=== PATIENT | male | born 1950 | race African-American/Black ===

== ENCOUNTER 2019-02-09 11:27 | Inpatient (IN) ==
--- NOTE | 2019-02-09 12:11 | Diag Imaging Result Doc PS360 ---
CHEST-2 VIEWS - 02/09/2019 INDICATION: weak COMPARISON: 10/21/2018 FINDINGS: The lungs are normally expanded and clear. Heart size and mediastinal contours are normal. No pneumothorax or pleural effusion. Stable calcified granulomas in the left upper lobe. IMPRESSION: Negative exam. Electronically signed by Flaco Chahal 02/09/2019 12:09 PM
[2019-02-09] MEDS ORDERED: NS 1,000 ML IV ONE (14:59)
[2019-02-09 15:59] LABS: BASO# 0.03 X1000 (0.0-0.2); BASO% 0.5 % (0.0-0.8); EOS# 0.03 X1000 (0.0-0.7); EOS% 0.5 % (0.0-10.0); HEMATOCRIT 40.8 % (42.0-52.0); HEMOGLOBIN 13.7 g/dL (14.0-18.0); IMM GRAN# 0.02 X1000 (0.0-0.04); IMM GRAN% 0.3 % (0.0-0.5); LYMPH# 1.36 X1000 (1.2-3.4); LYMPH% 21.2 % (20.5-51.1); MCH 31.2 PG (27-31); MCHC 33.6 g/dL (33-37); MCV 92.9 FL (81-99); MONO# 0.77 X1000 (0.11-0.59); MPV 10.1 FL (7.4-10.4); NEUT% 65.5 % (42.2-75.2); PLT 403 X1000 (130-400); RBC 4.39 XMIL (4.7-6.1); RDW 13.3 % (11.5-14.5); WBC 6.41 X1000 (4.8-10.8)
[2019-02-09 16:13] LABS: INR 1.55; PROTIME 19.8 Seconds (11.0-16.0)
[2019-02-09 16:31] LABS: AGAP 13; ALB/GLOB RATIO 1.8; ALBUMIN 4.3 g/dL (3.5-5.0); ALKALINE PHOSPHATASE 110 U/L (32-122); BUN 17 mg/dL (8-22); CALCIUM 9.4 mg/dL (8.8-10.2); CHLORIDE 102 mmol/L (98-107); CK PROFILE 125 U/L (24-204); COSMO 286; CREATININE 0.9 mg/dL (0.7-1.2); ESTIMATED GFR > 60; GLUCOSE 83 mg/dL (70-104); GOT 80 U/L (10-34); GPT 37 U/L (10-44); POTASSIUM 4.8 mmol/L (3.5-5.1); SODIUM 143 mmol/L (136-145); TCO2 28 mmol/L (25-35); TOTAL BILIRUBIN 0.93 mg/dL (0.20-1.00); TOTAL PROTEIN 6.7 g/dL (6.3-8.3)
--- NOTE | 2019-02-09 16:33 | Diag Imaging Result Doc PS360 ---
CT HEAD W/O CONTRAST - 02/09/2019 INDICATION: syncope COMPARISON: 07/24/2018 FINDINGS: There is stable advanced, diffuse cerebral atrophy. No intracranial mass or hemorrhage. The skull is intact. The sinuses, mastoids, and middle ears are clear. IMPRESSION: No acute process. This exam was performed using automated exposure control, adjustment of mA or kV according to patient size, and/or use of iterative reconstruction technique Electronically signed by Flaco Chahal 02/09/2019 4:31 PM
[2019-02-09] MEDS ORDERED: LOPRESSOR IV ONE (17:19)
[2019-02-09] MEDS ORDERED: LASIX PO ONE (19:47)
[2019-02-09] MEDS ORDERED: MORPHINE IV ONE (19:47)
[2019-02-09] MEDS ORDERED: ASPIRIN PO ONE (19:47)
--- NOTE | 2019-02-09 20:22 | PROVIDER DOCUMENTATION ---
This chart was entered by Florence Santiago Scribe, acting as scribe for Jane Walker MD. HPI-Chest Pain - General Chief Complaint: General Adult Stated Complaint: PASSED OUT SUNDAY@[employer] Time Seen by Provider: 02/09/19 14:52 Source: patient Allergies/Adverse Reactions: Patient Allergies Allergy/AdvReac Type Severity Reaction Status Date / Time No Known Allergies Allergy Verified 10/21/18 15:27 Home Medications: Home Medication List Medication Instructions Recorded Confirmed Last Taken Type Albuterol Sulfate [Albuterol 8.5 gm IH Q6H PRN PRN #1 hfa.aer.ad 04/21/18 07/24/18 Unknown Rx Sulfate Hfa] Aspirin 81 mg PO DAILY #30 chewtab 04/21/18 07/24/18 06/10/18 16:30 Rx Digoxin [Lanoxin] 125 microgm PO DAILY #30 tab 04/21/18 07/24/18 06/10/18 16:30 Rx Metoprolol Succinate E.r. [Toprol 25 mg PO DAILY #30 tab 04/21/18 07/24/1805/13 Rx Xl] Spironolactone [Aldactone] 25 mg PO DAILY #30 tab 04/21/18 07/24/18 05/21/18 Rx ATORVAstatin [Lipitor] 40 mg PO QHS tablet 05/27/18 07/24/18 06/10/18 16:30 Rx Tamsulosin [Flomax] 0.4 mg PO DAILY capsule 05/27/18 07/24/18 06/10/18 16:30 Rx Furosemide 2 tab PO BID #120 tab 06/15/18 07/24/18 Unknown Rx Sacubitril/Valsartan [Entresto 24 1 tab PO BID #60 tab 06/15/18 07/24/18 Unknown Rx mg-26 mg Tablet] Amiodarone [Cordarone] 400 mg PO BID #60 tab 07/25/18 Unknown Rx Rivaroxaban [Xarelto] 20 mg PO WSUPPER #60 tab 07/25/18 Unknown Rx - History of Present Illness-CP Nature of Presenting Problem: 68 y/o male presents to ED with worsening L sided chest pain onset 2 days ago. Pt reports he had an episode of syncope 2 days ago while at the bank, but refused medical attention. Pt is alert and oriented. Location: reports: other (L sided) Chest Pain Radiation: reports: no radiation Quality of Pain: reports: sharp Severity in ED: moderate Onset/Duration: 2 days ago Timing: still present, getting worse Context/Activities at Onset: reports: none Modifying Factors: improves with: nothing Associated Symptoms: reports: syncope Nitro Today/Relief: no nitro taken today Aspirin Treatment Today: no aspirin today Prior Chest Pain/Cardiac Workup: reports: no prior cardiac workup, other (hx CHF/HTN) Similar Symptoms Previously?: No Recently Seen Here or By Another Healthcare Provider: No Review of Systems - Adult - REVIEW OF SYSTEMS - ADULT Constitutional: denies: chills, fever Eyes: reports: no symptoms reported Ears, Nose, Mouth & Throat: reports: no symptoms reported Cardiovascular: reports: chest pain. denies: palpitations Respiratory: denies: cough, shortness of breath Gastrointestinal: denies: abdominal pain, diarrhea, nausea, vomiting Genitourinary: reports: no symptoms reported Musculoskeletal: denies: back pain, joint pain Integumentary: reports: no symptoms reported Neurological: reports: syncope. denies: dizziness/vertigo, seizure Psychiatric: reports: no symptoms reported Endocrine: reports: no symptoms reported Hematologic/Lymphatic: reports: no symptoms reported Allergic/Immunologic: reports: no symptoms reported All Other Systems: Reviewed and Negative Past History - Adult - PAST MEDICAL HISTORY-ADULT Review of Records: reports: Old Records Reviewed, Nursing Assessment Review, Medications Reviewed Major Childhood Illnesses: reports: denies history Cardiovascular: reports: CHF, HTN Respiratory: reports: pneumonia, other (sob) Gastrointestinal: reports: denies history Genitourinary: reports: other (BPH) Musculoskeletal: reports: arthritis Neurological: reports: denies history Psychiatric: reports: denies history Endocrine/Immune: reports: denies history - PRIOR SURGERIES/PROCEDURES Surgical/Procedure History: reports: orthopedic (extremity) (L ankle) - IMMUNIZATION STATUS Childhood Immunizations: See Nurse Assessment Flu Vaccine: See Nurse Assessment - FAMILY HISTORY Family History: reviewed, not pertinent - SOCIAL HISTORY Smoking: less than 1 pack/day Provider spent 3-5 mins advising pt. on dangers of tobacco.: Discussed manners to quit use, and f/u contacts for add'l counseling. Substance Use: none/never Alcohol Use Frequency: occasionally Living Situation: family Physical Exam-General - PHYSICAL EXAM-ADULT Initial Vital Signs Reviewed: Yes - CONSTITUTIONAL General Appearance: appears well, alert, no apparent distress - EYES Eyes: PERRL/EOMI, pink conjunctivae - HEAD, EARS, NOSE, MOUTH & THROAT HENMT: normocephalic/atraumatic, moist mucous membranes, normal ENT inspection - NECK Neck: non-tender, full range of motion - RESPIRATORY Respiratory: chest non-tender, lungs clear, normal breath sounds - CARDIOVASCULAR Cardiovascular: normal peripheral pulses, regular rate, rhythm - GASTROINTESTINAL (ABDOMEN) Abdominal Exam: normal bowel sounds, non tender, soft, distended - MUSCULOSKELETAL Back Exam: normal inspection, no CVA tenderness, no vertebral tenderness Extremity: normal range of motion, non-tender, normal gait - SKIN Integumentary: normal color, warm/dry - NEUROLOGIC Neurologic: grossly normal - PSYCHIATRIC Psych/Mental Status: normal mood/affect, normal thought content, normal thought process, oriented x 3 - HEART Score HEART Score: History: Moderately Suspicious HEART Score: ECG: Normal HEART Score: Age: > or = 65 Years HEART Score: Risk Factors for Atherosclerotic Disease: > or = 3 Risk Factors or History of Atherosclerotic Disease HEART Score: Troponin: < or = Normal Limit Total HEART Score:: 5 Progress - PLAN OF CARE/RESULTS Progress/Plan/Lab Results: Vital Signs - 8 hr 02/09/19 15:24 02/09/19 15:25 02/09/19 15:30 Temperature Pulse Rate 127 H 111 H 126 H Respiratory Rate 6 L 12 22 Blood Pressure 159/106 O2 Sat by Pulse Oximetry 99 100 02/09/19 15:39 02/09/19 15:40 02/09/19 15:50 Temperature Pulse Rate 108 H 116 H 107 H Respiratory Rate 15 26 H 15 Blood Pressure 142/91 O2 Sat by Pulse Oximetry 100 100 100 02/09/19 16:09 02/09/19 16:10 02/09/19 16:20 Temperature Pulse Rate 140 H 102 H Respiratory Rate 21 18 Blood Pressure O2 Sat by Pulse Oximetry 100 99 99 02/09/19 16:30 02/09/19 16:33 02/09/19 16:40 Temperature Pulse Rate 107 H 104 H 106 H Respiratory Rate 9 L 14 13 Blood Pressure 136/89 O2 Sat by Pulse Oximetry 99 98 99 02/09/19 16:50 02/09/19 17:00 02/09/19 17:03 Temperature Pulse Rate 104 H 105 H 104 H Respiratory Rate 10 L 22 19 Blood Pressure 146/98 O2 Sat by Pulse Oximetry 99 99 99 02/09/19 17:10 02/09/19 17:20 02/09/19 17:30 Temperature Pulse Rate 102 H 97 H 102 H Respiratory Rate 18 16 15 Blood Pressure O2 Sat by Pulse Oximetry 99 99 99 02/09/19 20:04 Temperature 98 F Pulse Rate 105 H Respiratory Rate 18 Blood Pressure 150/100 O2 Sat by Pulse Oximetry 98 Laboratory Results - last 24 hr 02/09/19 02/09/19 02/09/19 15:35 15:35 15:35 WBC 6.41 RBC 4.39 L Hgb 13.7 L Hct 40.8 L MCV 92.9 MCH 31.2 H MCHC 33.6 RDW Std Deviation 13.3 Plt Count 403 H MPV 10.1 Immature Gran % (Auto) 0.3 Neut % (Auto) 65.5 Lymph % (Auto) 21.2 Hartley % (Auto) 12.0 H Eos % (Auto) 0.5 Baso % (Auto) 0.5 Immature Gran # (Auto) 0.02 Neut # (Auto) 4.20 Lymph # (Auto) 1.36 Hartley # (Auto) 0.77 H Eos # (Auto) 0.03 Baso # (Auto) 0.03 PT 19.8 H INR 1.55 PTT (Actin FS) 34.0 Sodium 143 Potassium 4.8 Chloride 102 Carbon Dioxide 28 Anion Gap 13 BUN 17 Creatinine 0.9 Estimated GFR/1.73 m2 > 60 BUN/Creatinine Ratio 19 Glucose 83 POC Glucose Calculated Osmolality 286 Calcium 9.4 Total Bilirubin 0.93 AST 80 H ALT 37 Alkaline Phosphatase 110 Creatine Kinase 125 Troponin T Pnf-[id number]-Coqlzlpyxkt Pept Total Protein 6.7 Albumin 4.3 Globulin 2.4 Albumin/Globulin Ratio 1.8 Plasma Lactate 02/09/19 02/09/19 02/09/19 15:35 16:36 17:31 WBC RBC Hgb Hct MCV MCH MCHC RDW Std Deviation Plt Count MPV Immature Gran % (Auto) Neut % (Auto) Lymph % (Auto) [place] % (Auto) Eos % (Auto) Baso % (Auto) Immature Gran # (Auto) Neut # (Auto) Lymph # (Auto) Hartley # (Auto) Eos # (Auto) Baso # (Auto) PT INR PTT (Actin FS) Sodium Potassium Chloride Carbon Dioxide Anion Gap BUN Creatinine Estimated GFR/1.73 m2 BUN/Creatinine Ratio Glucose POC Glucose 81 Calculated Osmolality Calcium Total Bilirubin AST ALT Alkaline Phosphatase Creatine Kinase Troponin T < 0.010 Pvv-R-Faozsmglear Pept Total Protein Albumin Globulin Albumin/Globulin Ratio Plasma Lactate 1.4 02/09/19 02/09/19 02/09/19 17:45 17:45 17:45 WBC RBC Hgb Hct MCV MCH MCHC RDW Std Deviation Plt Count MPV Immature Gran % (Auto) Neut % (Auto) Lymph % (Auto) Hartley % (Auto) Eos % (Auto) Baso % (Auto) Immature Gran # (Auto) Neut # (Auto) Lymph # (Auto) Hartley # (Auto) Eos # (Auto) Baso # (Auto) PT INR PTT (Actin FS) Sodium Potassium Chloride Carbon Dioxide Anion Gap BUN Creatinine Estimated GFR/1.73 m2 BUN/Creatinine Ratio Glucose POC Glucose Calculated Osmolality Calcium Total Bilirubin AST ALT Alkaline Phosphatase Creatine Kinase 100 Troponin T < 0.010 Iso-T-Rmgcrfcyemv Pept 114 Total Protein Albumin Globulin Albumin/Globulin Ratio Plasma Lactate Orders Category Date Time Status Cardiac Monitoring DIRECTED Care 02/09/19 14:57 Active Finger Stick Blood Sugar (ED) DIRECTED Care 02/09/19 14:57 Active Nursing- Obtain EKG ONCE Care 02/09/19 11:48 Active Oxygen Therapy- ED Nursing DIRECTED Care 02/09/19 14:57 Active Saline Loc NOW Care 02/09/19 14:57 Active Vital Signs Order ORDERED Care 02/09/19 16:24 Active CHEST-2 VIEWS [RAD] Stat Exams 02/09/19 11:[address] HEAD W/O CONTRAST [CT] Stat Exams 02/09/19 14:58 Completed BNP [PRO B-NATRIURETIC PEPTIDE] Stat Lab 02/09/19 17:45 Completed CBC WITH ELECTRONIC DIFF [HEME] Stat Lab 02/09/19 15:35 Completed CK PROFILE [SP CHEM] Stat Lab 02/09/19 15:35 Completed CK PROFILE [SP CHEM] Stat Lab 02/09/19 17:45 Completed COMPREHENSIVE METABOLIC PANEL [CHEM] Stat Lab 02/09/19 15:35 Completed DIGOXIN [TDM] Stat Lab 02/09/19 19:54 Ordered LACTATE, PLASMA [CHEM] Stat Lab 02/09/19 17:31 Completed PROTIME WITH INR [COAG] Stat Lab 02/09/19 15:35 Completed PTT [COAG] Stat Lab 02/09/19 15:35 Completed TROPONIN T Stat Lab 02/09/19 15:35 Completed TROPONIN T Stat Lab 02/09/19 17:45 Completed 0.9% Sodium Chloride Inj [Ns] 1,000 ml Med 02/09/19 14:59 Discontinued IV 999 mls/hr Aspirin Med 02/09/19 19:47 Discontinued 325 mg PO NOW ONE Furosemide [Lasix] Med 02/09/19 19:47 Discontinued 40 mg PO NOW ONE Metoprolol [Lopressor] Med 02/09/19 17:19 Discontinued 2.5 mg IV NOW ONE Morphine Med 02/09/19 19:47 Discontinued 2 mg IV NOW ONE Altered Mental Status Stat Oth 02/09/19 14:56 Ordered EKG [EKG] Stat Ther 02/09/19 11:48 Ordered EKG [EKG] Stat Ther 02/09/19 17:33 Ordered Transfer/Admit Order [TRANSFER] Routine Transfer 02/09/19 19:41 Ordered Result Diagrams: 02/09/19 15:35 02/09/19 15:35 - EKG 1 Time of EKG reading by physician:: 11:50 EKG Read and Signed by:: Dexter Iverson EKG Interpretation (*Must complete 3 of following elements*): Abnormal Rate: 112 Rhythm: Sinus tach [place]: left QRS: other (low voltage QRS; inferior infarct; cannot rule out anterior infarct) NE Interval: prolonged ST Wave: normal - XRAY 1 XRAY Study: Chest Impression: See EMR Report ([facility] [address], [address], [place] [address] Department of Imaging Patient: SILVIANO MAKI EADM Date: 02/09/19MR#: [id number] : 1950DM Status: PRE ERAcct#: [id number] Age/Sex: 68/MRoom/Bed: Loc: ED Ordering Physician: Dexter Iverson DO Family Physician: Sg Robbins MD Reason for Procedure: weak Signed CHEST-2 VIEWS - 02/09/2019 INDICATION: weak COMPARISON: 10/21/2018 FINDINGS: The lungs are normally expanded and clear. Heart size and mediastinal contours are normal. No pneumothorax or pleural effusion. Stable calcified granulomas in the left upper lobe. IMPRESSION: Negative exam. Electronically signed by Flaco Chahal 02/09/2019 12:09 PM 02/09/19 1209 Interpreting Physician: Flaco Chahal MD Dictated Date/Time: 02/09/19 1206 cc: Dexter Iverson DO; Sg Robbins MD) - CT/MRI 1 CT Study: Head Impression: See EMR Report ([facility] [address] [place] [address], [address], [place] [address] Department of Imaging Patient: SILVIANO MAKI EADM Date: 02/09/19#: [id number] : 1950DM Status: [facility] ERAcct#: [id number] Age/Sex: 68/MRoom/Bed: Loc: ED Ordering Physician: Jane Walker MD Family Physician: Sg Robbins MD Reason for Procedure: syncope Signed CT HEAD W/O CONTRAST - 02/09/2019 INDICATION: syncope COMPARISON: 07/24/2018 FINDINGS: There is stable advanced, diffuse cerebral atrophy. No intracranial mass or hemorrhage. The skull is intact. The sinuses, mastoids, and middle ears are clear. IMPRESSION: No acute process. This exam was performed using automated exposure control, adjustment of mA or kV according to patient size, and/or use of iterative reconstruction technique Electronically signed by Flaco Chahal 02/09/2019 4:31 PM 02/09/19 1631 Interpreting Physician: Flaco Chahal MD Dictated Date/Time: 02/09/19 1629 cc: Jane Walker MD; Sg Robbins MD) - CONSULTS/PCP/HOSPITALIST Notification #1 *Consult/PCP/Hospitalist*: Dr. Cook Time Discussed: 18:48 Consult Disposition: Admit (for syncopal episode and will consulted) #2 Consult: Dr. pisano Time Discussed: 18:53 (will transfer to night team) #3 Consult: Dr. Leiva Time Discussed: 20:21 Consult Disposition: Admit (acs, syncopal episode) Departure - Departure Date of Disposition Decision: 02/09/19 Time of Disposition Decision: 18:47 DIAGNOSIS: ACS (acute coronary syndrome), Syncopal episodes Disposition: ADMITTED INPATIENT 09 Certified Medical Emergency: Emergent Condition: Stable - Critical Care Note This patient required my direct & personal management of CC.: No Attestation - Physician/ JAZZY Attestation Patient care was provided by Advanced Practice Provider:: No The physician spent face to face time with patient:: Yes Advanced Practice Provider documentation review:: Supervising physician onsite and consulted in the evaluation and care of this patient. The physician did have a face to face encounter with the patient. This chart was documented by the indicated scribe, (Florence Santiago Scribe) and accurately reflects the services I performed and decisions made by me, Jane Walker MD, as attested by the provider's signature.
--- NOTE | 2019-02-09 21:05 | HISTORY AND PHYSICAL ---
PRIMARY CARE PHYSICIAN: Dr. Sg Robbins. VASCULAR: Dr. Ghanshyam Cortez. REASON FOR ADMISSION: Today history of chest pain and syncope. HISTORY OF PRESENT ILLNESS: Mr. Royce Jessica is a 68-year-old man with past medical history of coronary artery disease, nonischemic cardiomyopathy, chronic systolic heart failure with EF of 25%, hypertension, hyperlipidemia who was last admitted here in July 2018 for syncope and atrial flutter. Comes in today complaining of a two day history of constant chest pain which is throbbing in nature. He said the pain occurred several hours after he had a syncopal spell while at the bank on Sunday two days ago. He says he was standing and was going to insert his card into one of the bank machines and the next thing he knew he broke out in a sweat. When he came to he saw people surrounding him and he managed to get up. He denies any fecal or urinary incontinence, tongue bite. He denies any antecedent or subsequent palpitations, shortness of breath, fever or chills. He said several hours later he developed chest pain confined to this precordium. He said the pain is not nonradiating with no specific aggravating or relieving factors. The patient came to the ER today because he has also had a two day history of worsening expectorant cough which is consistent of whitish sputum. He said in his mind he felt that he may have had pneumonia when he put the chest pain and the cough together. He had no fever or chills, however. No antecedent PND, orthopnea, leg swelling. He also denies any change in his medication recently, but oddly enough he admits to a 50 pounds weight loss which he states occurred with simultaneous decreased appetite. No altered bowel habits. No other additional GI or complaints. REVIEW OF SYSTEMS: Also notable for only cramping in his feet. He denies any bleeding from any orifice. No vomiting or diarrhea. Otherwise, 12 system review was done. Positive findings per HPI. ALLERGIES: None. MEDICATIONS: Have not been reconciled. His old list has him on Aldactone, atorvastatin albuterol, aspirin, amiodarone, Entresto, Flomax, furosemide, digoxin, metoprolol and Xarelto. FAMILY HISTORY: Notable for heart disease, breast cancer, but no diabetes in first-degree relatives. SURGICAL HISTORY: Has had left ORIF. SOCIAL HISTORY: Lives alone. Does not smoke, drink or use illicit drugs. LABORATORY WORK: EKG showed low voltage sinus wave, sinus rhythm with a rate of about 104. He has incomplete right bundle, left axis deviation, Q-waves in the inferior leads. Also, QT prolongation. White count 6000, hemoglobin and hematocrit 13 and 40, platelets 403,000, with normal differential. Chemistry is entirely normal. BUN 17, creatinine 0.9, AST 80, ALT 37. Troponin is undetected. Lactate 1.4. Coags. PT 19, INR 1.5, PTT 34. Chest film clear. CT scan shows no acute intracranial process. PHYSICAL EXAMINATION: VITAL SIGNS: Pressure 146/98, respirations 15, temperature is 98.5, pulse is 102. GENERAL: A middle-aged male, not in acute distress. AAO x 3. Normal mood and affect. HEENT: Head is normocephalic, atraumatic. EOMI intact, not pale. ENT on exam is grossly normal without any exudates or erythema. No cyanosis. NECK: Supple. No JVD or carotid bruit. No hepatojugular reflux. No bruit, no thyromegaly. CHEST: Clear when auscultated with good air entry both lung pastrana. CARDIOVASCULAR: First and second heart sounds heard. No gallops, murmurs, rubs. Regular rhythm and slight tachycardia. ABDOMEN: Full, soft, nontender. No megaly. Bowel sounds are normal. RECTAL: Rectal exam deferred at this time. EXTREMITIES: Patient has diminished distal pulse volumes in all extremities. Rhythm is regular, symmetrical. No edema, clubbing or peripheral cyanosis. Feet particularly are cool to touch. NEUROLOGIC: No gross focal deficits. SKIN: Intact. No breakdown of skin. MUSCULAR: Grossly normal. ASSESSMENT: 1. Syncopal episode, could be due to dysrhythmia. 2. Chest pain, somewhat atypical. 3. History of atrial fibrillation flutter. 4. Chronic heart failure with reduced EF of 25%. 5. Hypertensive heart disease. 6. Hyperlipidemia. 7. Nonischemic cardiomyopathy. PLAN: ER physician contacted Dr. Cook who said in light of the patient's extensive cardiac history, it will be prudent to keep him for a day or two to elucidate the etiology of syncope. My guess is probably this is probably related to more likely an electrical versus a mechanical etiology. However, vasovagal syncope cannot be discounted. Patient was on his feet, broke out in a sweat before passing out. He has had an extensive catheterization which was unimpressive in May 2018. Is highly unlikely that this is an ischemic etiology. The patient will be monitored and if no dysrhythmias revealed, he can probably be sent home with a 30 day event monitor. I have ordered a digoxin level, magnesium level are in light of the patient's QT prolongation to see if these may be playing a role. Also, to rule out a possibility of torsade which is somewhat unlikely in this patient. We will reconcile patient's home medications on arrival. Will reconcile patient's home medications once they are made available. We will recommend doing orthostatic vital signs which I feel have not been done and if the etiology of this can be remedied by my adjusting his medications. cc: MD Sg Cuello MD Khurram Bashir
[2019-02-09] MEDS ORDERED: NS 1,000 ML ONE (21:25)
[2019-02-09] MEDS ORDERED: VERSED ONE (21:26)
[2019-02-09] MEDS ORDERED: ZOFRAN IV PRN (22:18)
[2019-02-09] MEDS ORDERED: MORPHINE IV PRN (22:18)
[2019-02-09] MEDS ORDERED: TYLENOL PO PRN (22:18)
[2019-02-10 06:08] LABS: AGAP 8; BUN 15 mg/dL (8-22); CALCIUM 8.3 mg/dL (8.8-10.2); CHLORIDE 104 mmol/L (98-107); COSMO 280; ESTIMATED GFR > 60; GLUCOSE 96 mg/dL (70-104); POTASSIUM 3.9 mmol/L (3.5-5.1); SODIUM 140 mmol/L (136-145); TCO2 28 mmol/L (25-35)
--- NOTE | 2019-02-10 08:02 | EKG Report ---
Test Performed on : 02/09/2019 11:50:31 AM Test Reason : weak Blood Pressure : / mmHG Vent. Rate : 112 BPM Atrial Rate : 112 BPM P-R Int : 112 ms QRS Dur : 086 ms QT Int : 448 ms P-R-T Axes : 000 -35 056 degrees QTc Int : 611 ms Sinus tachycardia. Left axis deviation Low voltage QRS Inferior infarct (cited on or before 16-NOV-2017) Cannot rule out Anterior infarct , age undetermined Prolonged QT Abnormal ECG When compared with ECG of 21-OCT-2018 15:25, Minimal criteria for Anterior infarct are now present T wave inversion no longer evident in Lateral leads Unconfirmed Result
--- NOTE | 2019-02-10 08:03 | EKG Report ---
Test Performed on : 02/09/2019 6:00:36 PM Test Reason : cp Blood Pressure : / mmHG Vent. Rate : 082 BPM Atrial Rate : 082 BPM P-R Int : 186 ms QRS Dur : 074 ms QT Int : 364 ms P-R-T Axes : -10 -56 050 degrees QTc Int : 425 ms Normal sinus rhythm. Left axis deviation Low voltage QRS Inferior infarct (cited on or before 16-NOV-2017) Possible Anterolateral infarct (cited on or before 16-NOV-2017) Abnormal ECG When compared with ECG of 09-FEB-2019 11:50, (Unconfirmed) T wave inversion more evident in Anterior leads Nonspecific T wave abnormality no longer evident in Lateral leads Unconfirmed Result
--- NOTE | 2019-02-10 09:53 | EKG Report ---
Test Performed on : 02/10/2019 09:38:39 AM Test Reason : chest pain Blood Pressure : / mmHG Vent. Rate : 076 BPM Atrial Rate : 076 BPM P-R Int : 202 ms QRS Dur : 078 ms QT Int : 394 ms P-R-T Axes : 016 -34 046 degrees QTc Int : 443 ms Normal sinus rhythm. Left axis deviation Low voltage QRS Inferior infarct (cited on or before 16-NOV-2017) Cannot rule out Anteroseptal infarct (cited on or before 16-NOV-2017) Abnormal ECG When compared with ECG of 09-FEB-2019 18:00, (Unconfirmed) Questionable change in initial forces of Septal leads Questionable change in initial forces of Lateral leads Confirmed by Ruben CHAPMAN, Ozzy ([id number]) on 02/10/2019 8:49:29 PM
[2019-02-10] MEDS: CORDARONE PO SCH (10:53)
[2019-02-10] MEDS: LOPRESSOR PO SCH (10:53)
[2019-02-10] MEDS: LASIX PO SCH (10:54)
[2019-02-10] MEDS: ALDACTONE PO SCH (10:54)
[2019-02-10] MEDS: ENTRESTO 24 MG-26 MG TABLET PO SCH ×2 (11:03→20:52)
--- NOTE | 2019-02-10 14:48 | ECHO REPORT ---
ORDER DATE: 02/09/2019 INDICATIONS: Syncope, CHF. FINDINGS: 1. The right atrium appears normal in size. 2. Trace tricuspid regurgitation. RV systolic pressure unable to be estimated due to poor Doppler jet. 3. The right ventricle appears to be somewhat enlarged but it is difficult to visualize. Probable normal RV systolic function. 4. No significant pulmonic insufficiency. 5. Severe left atrial enlargement with a volume index of 46. 6. No mitral valve prolapse. Trace mitral regurgitation. 7. Normal LV size, end-diastolic dimension of 5.1. Normal wall thicknesses with a posterior and interventricular septal wall thickness of 1 cm each. Normal ejection fraction with an estimated EF of 55% to 60% with normal wall motion. 8. The aortic valve opens well with no evidence of stenosis or insufficiency. 9. The aorta appears somewhat dilated with a dimension of 3.9 cm. 10. No pericardial effusion identified. cc: MD Omkar Khoury MD
--- NOTE | 2019-02-10 14:49 | PROGRESS NOTE ---
DATE: 02/10/2019 INTERVAL HISTORY: He has not had any syncopal episodes since coming. He continues to complain of chest pain in the precordial region since presentation and he thinks that it could be related to gas. He denies any aggravating or relieving factors. Denies any exertional component and it is constant, sharp in the left precordial region. He also admits to drinking alcohol on a daily basis. He currently states that he is feeling tremulous. VITAL SIGNS: Temperature 97.5 degrees, pulse is 59, respiratory rate 18, blood pressure 120/73, saturating 100% on room air. PHYSICAL EXAMINATION: General: Well-built man, not in any acute distress. HEENT: Oral cavity is moist. Lungs: Air entry bilaterally equal. No wheeze, rhonchi, or crackles. Cardiovascular: S1, S2 normal. No murmur, rub, or gallop. Abdomen: Soft, nontender. Chest wall: He does not have any chest wall tenderness. He does not have hepatojugular reflex. Extremities: No lower extremity edema. HEENT: He is alert and oriented x3. Orthostatic Vital Signs: Suggested he did develop tachycardia on standing up with the heart rate jumping more than 20 mmHg on standing up. However, it was a 1 time measurement and I will repeat orthostatic vital signs. LABS: Suggestive of normocytic anemia, normal platelet count, normal electrolytes. MICROBIOLOGY: No data. IMAGING: Head CT on admission was unremarkable. Chest x-ray was also unremarkable without any pneumonia, pneumothorax, or pleural effusion. He does appear to have a degree of hiatal hernia on my review of the chest x-ray. ASSESSMENT AND PLAN: 1. Syncope 3 days prior to presentation. Differential includes vasovagal due to prolonged sun exposure, cardiac arrhythmia, hypoglycemia because of alcohol use and not eating breakfast, and hypotension. I will continue to monitor him in the telemetry unit and I will repeat orthostatic vital signs. I will follow up echocardiogram results. 2. Chest pain localized on the left chest, precordial region, with a hiatal hernia on chest x- ray. He did have coronary imaging in May of 2018 which was largely unremarkable. I will start him on famotidine and will follow further Cardiology recommendations. 3. Paroxysmal atrial fibrillation. Continue him on metoprolol, amiodarone and Xarelto. 4. History of nonischemic alcoholic cardiomyopathy and chronic systolic congestive heart failure with ejection fraction of 25%. Follow up repeat echocardiogram. Continue him on Entresto, Lasix, spironolactone. 5. Alcohol use disorder. Currently appearing tremulous. He is alert and oriented x3 though. I will start him on chlordiazepoxide for mild early withdrawal. 6. Disposition. I will continue to monitor the patient inside the telemetry unit as I await further echocardiogram and Cardiology recommendations. Based on it, he may need ambulatory monitor at the time of discharge. His Lasix dose has been decreased considering possibility of orthostatic hypotension. Plan of care discussed with him. All of his questions have been answered. He was counseled about not using alcohol in the future, he agreed. cc: Keith Flores MD MTDD
[2019-02-10] MEDS: LIBRIUM PO SCH ×2 (15:27→20:47)
[2019-02-10] MEDS: PEPCID PO SCH ×2 (15:28→20:47)
[2019-02-10] MEDS ORDERED: XARELTO PO SCH (17:00)
--- NOTE | 2019-02-10 17:15 | CONSULTATION ---
DATE OF CONSULTATION: 02/10/2019 CARDIOLOGY CONSULTATION: IMPRESSION: 1. Recent syncopal episode occurring 2 days before admission with clinical features to suggest possible orthostatic hypotension, vasovagal episode, or less likely bradycardia episode. Left ventricular systolic function has improved, making ventricular arrhythmia less likely. 2. Atypical chest pain. Continuous in low-grade fashion since patient syncopal episode. I suspect this is more likely musculoskeletal. Previous coronary angiography last year revealed no significant coronary obstructive lesions. 3. Nonischemic cardiomyopathy, probably related to previous heavy alcohol use. Left ventricular systolic function has improved. 4. Previous heavy alcohol use in the past, discontinued, but then resumed 2 months ago. 5. Anorexia and weight loss over the last few months. This may be related to patient's alcohol use versus other etiology. 6. Atrial arrhythmias, including atrial flutter and atrial fibrillation. Patient has been treated with amiodarone and long-term anticoagulation. 7. Hypertension. RECOMMENDATIONS: 1. Followup echocardiography. 2. Continue telemetry observation. 3. Reduce Lasix dose significantly. 4. Arrange for follow-up 48-hour Holter study at time of discharge. 5. If patient continues clinically stable overnight, it would be reasonable for him to be discharged tomorrow and follow up with his regular bulk pigment reducer, Dr. Cook. HISTORY: This 68-year-old -[place] male with past history of severe nonischemic cardiomyopathy probably related to alcohol use in the past, no coronary disease, hypertension, previous heavy alcohol use recently resumed, and hypertension was admitted yesterday after he presented following an episode of syncope. He actually came in because of some continuous chest discomfort he had. He was found to have severe nonischemic cardiomyopathy last year. Coronary angiography revealed no significant coronary disease. At that time, he had been drinking heavily. He also had atrial arrhythmias manifest, including atrial flutter and atrial fibrillation. He was managed medically and also with rate control with amiodarone. He was also treated with Entresto and beta-zoe in addition to diuretic therapy. He discontinued alcohol use probably 5 months ago, but recently resumed this in the last 6 weeks. He relates a 6-to 8-week history of anorexia and weight loss. There has been no recent chest pain until after his fall related to his syncope. He reports that on Sunday he did not eat breakfast, and around 11 a.m., he was at the bank interacting with his back account via an [employer] machine. He reports sudden loss of consciousness without warning and awoke on the ground. He declined transport to the hospital when he was advised that [facility] would be contacted. He was subsequently placed in a chair sitting up and developed diaphoresis and nausea. His symptoms eventually abated. Ever since his fall, he has had some low-intensity dull left lateral chest discomfort. He relates that he believes he fell to his left side as he had a bruise on the left side of his head and his left arm. Because of the persistent low-grade chest discomfort, he came into the emergency room yesterday and was evaluated. Head CT scan was negative for any intracranial hemorrhage. He has been admitted to Telemetry. He does relate some tendency for postural lightheadedness, but no previous syncope. He has been on tamsulosin for prostate hypertrophy and relates that he takes this in the mornings rather than at night. PAST MEDICAL HISTORY: 1. Severe nonischemic cardiomyopathy probably related to alcohol with left ejection fraction of 25%. Previous coronary angiography in the latter part of last year negative for any significant coronary obstructive lesions. 2. Previous heavy alcohol use, recently resumed in the last 6 to 8 weeks. 3. Hypertension. 4. Atrial arrhythmias, including atrial flutter and atrial fibrillation. Patient treated with amiodarone, rate control, and anticoagulation. 5. Hyperlipidemia. PAST SURGICAL HISTORY: Includes left ankle fracture treated with open reduction and internal fixation, polypectomy performed via colonoscopy, and previous sternal fracture. ALLERGIES: No known drug allergies. MEDICATIONS PRIOR TO ADMISSION: As listed. 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 He has history of heavy alcohol use. He currently drinks several pints of vodka weekly. He has history of previous cigarette use. FAMILY HISTORY: Negative for premature coronary disease. REVIEW OF SYSTEMS: Pulmonary: Negative. Gastrointestinal: Noteworthy for anorexia, but otherwise negative. Constitutional: Noteworthy for weight loss, but otherwise negative. The remainder of the review of systems negative/noncontributory with 14 total systems reviewed. PHYSICAL EXAMINATION: This is a pleasant older -Wallis[place] male in no distress. Blood pressure 118/73, heart rate 59, oxygen saturation 100% on room air. HEENT: Extraocular movements appear intact. Mucous membranes are moist. Neck is supple without jugular venous distention. There are no carotid bruits. Chest is clear to auscultation. Cardiac exam reveals a regular rate and rhythm without appreciable murmur, rub, gallop. Abdomen is soft. Bowel sounds are normal. Extremities are without edema. Neurologic exam reveals him to be alert and fully oriented, speech is fluent, and he moves all 4 extremities equally well. DIAGNOSTIC STUDIES: A 12-lead EKG obtained on admission is reviewed and demonstrates sinus tachycardia, left axis deviation, low voltage QRS. Nonspecific T-wave abnormality demonstrated. Laboratory data includes white blood cell count 6.41 hematocrit 40.8, hemoglobin 13.7, platelet count 403,000. Pro-time 19.8, INR 1.55. Sodium 140, potassium 3.9, chloride 104, carbon dioxide 28, BUN 15, creatinine 1.0, AST 82, ALT 37. Troponin T initially less than 0.01. Follow-up troponin T less than 0.01. Albumin 4.3. TSH 2.1. cc: Rod Perry MD
[2019-02-10] MEDS ORDERED: FLOMAX PO SCH (21:00)
[2019-02-11 06:01] LABS: AGAP 11; BUN 12 mg/dL (8-22); CHLORIDE 103 mmol/L (98-107); COSMO 280; ESTIMATED GFR > 60; GLUCOSE 113 mg/dL (70-104); MAGNESIUM 1.9 mg/dL (1.5-2.7); SODIUM 140 mmol/L (136-145); TCO2 26 mmol/L (25-35)
--- NOTE | 2019-02-11 07:19 | EKG Report ---
Test Performed on : 02/11/2019 06:44:02 AM Test Reason : chest pain Blood Pressure : / mmHG Vent. Rate : 068 BPM Atrial Rate : 068 BPM P-R Int : 200 ms QRS Dur : 080 ms QT Int : 446 ms P-R-T Axes : 018 -36 087 degrees QTc Int : 474 ms Normal sinus rhythm. Left axis deviation Low voltage QRS Inferior infarct (cited on or before 16-NOV-2017) Cannot rule out Anteroseptal infarct (cited on or before 16-NOV-2017) T wave inversion in Lateral leads Abnormal ECG When compared with ECG of 10-FEB-2019 09:38, Nonspecific T wave abnormality has replaced inverted T waves in Anterior leads T wave inversion now evident in Lateral leads Confirmed by Ozzy Miranda MD ([id number]) on 02/11/2019 9:22:00 PM
[2019-02-11 08:12] VITALS: BP 126/82
[2019-02-11] MEDS: ALDACTONE PO SCH (08:26)
[2019-02-11] MEDS: ENTRESTO 24 MG-26 MG TABLET PO SCH (08:26)
[2019-02-11] MEDS: CORDARONE PO SCH (08:26)
[2019-02-11] MEDS: LASIX PO SCH (08:26)
[2019-02-11] MEDS: LOPRESSOR PO SCH (08:26)
[2019-02-11] MEDS: LIBRIUM PO SCH (08:26)
[2019-02-11] MEDS: PEPCID PO SCH (08:26)
[2019-02-11] MEDS ORDERED: FLOMAX PO SCH (09:00)
[2019-02-11] MEDS ORDERED: PRILOSEC PO ONE (09:13)
--- NOTE | 2019-02-11 09:58 | PROGRESS NOTE ---
DATE: 02/11/2019 INTERVAL HISTORY: His echocardiogram was essentially unremarkable. He denies any chest pain or shortness of breath. He continues to have that sharp pain in the epigastric region. We discussed about again alcoholic gastritis, gastroesophageal reflux disease and possible hiatal hernia. I also discussed with him about the medication changes that we might make in his regimen. He denies any more syncope episodes. Telemetry evaluation suggests he had an episode of bradycardia with his heart rate of 49 at about 2 a.m. when he was asleep. VITALS: Temperature 98.2 degrees, pulse 80, respiratory rate 14, blood pressure 126/82. Saturating 100% room air. He does have positive orthostatic vitals where his heart rate increased by up to 30 beats per minute and blood pressure systolic dropped by up to 59 mmHg on standing from supine position, though he was not symptomatic. LABS: No new labs today except BMP which is in acceptable range.Imaging: Echocardiogram suggests ejection fraction of 55 to 60 percent with normal wall motion. ASSESSMENT AND PLAN: 1. Syncope. Differential includes vasovagal syncope, orthostatic hypotension, possibly hypoglycemia which happened in fact 3 days prior to presentation. No telemetry event of cardiac arrhythmia. Echocardiogram is suggestive of improvement in left ventricular ejection fraction. 2. Positive orthostatic vitals. His systolic blood pressure did decrease by up to 15 mmHg from supine to standing position and his heart rate did increase by close to 30 beats per minute, though he was asymptomatic. His Lasix dose was already decreased. I will continue him on lower dose of Lasix. 3. Sharp lower chest epigastric pain. Differential includes alcoholic gastritis, gastroesophageal reflux disease and a possibility of hiatal hernia. I will start him on omeprazole. 4. Paroxysmal atrial fibrillation. Continue metoprolol tartrate at home though he takes succinate, amiodarone and Xarelto. 5. History of nonischemic alcoholic cardiomyopathy and chronic systolic congestive heart failure with ejection fraction of 25%, which now has improved after medical therapy to normal ejection fraction. Continue Entresto, lower dose of Lasix, spironolactone, and beta zoe. 6. Alcohol use disorder. He was counseled about not using alcohol in future. His mild withdrawal symptoms are currently being treated with chlordiazepoxide. 7. Disposition: The patient appears to be hemodynamically stable except mild orthostatic vitals. My plan is to discharge him today if Cardiology is okay. I will await their confirmation. cc: Keith Flores MD
--- NOTE | 2019-02-11 20:57 | DISCHARGE SUMMARY ---
ADMISSION DATE: 02/09/2019 DISCHARGE DATE: 02/11/2019 DISCHARGE DISPOSITION: Home. DISCHARGE CONDITION: Hemodynamically stable, alert and oriented x3. He does have postural tachycardia which is asymptomatic. Medication adjustments have been made. DISCHARGE DIAGNOSES: 1. Syncope 3 days prior to presentation, likely orthostatic hypotension or vasovagal. 2. Lower chest/epigastric pain, likely due to alcoholic gastritis versus gastroesophageal reflux disease because of hiatal hernia. 3. Alcohol use disorder, with active alcohol use and mild withdrawal. OTHER DIAGNOSES: 1. History of nonischemic alcoholic cardiomyopathy. 2. Paroxysmal atrial fibrillation. 3. Alcohol use disorder. 4. Benign prostatic hypertrophy. 5. Essential hypertension. CONSULTATIONS DURING HOSPITALIZATION: Cardiology, Dr. Perry. DISCHARGE MEDICATIONS: 1. Spironolactone 25 mg with supper. 2. Aspirin 81 mg daily. 3. Amiodarone 200 mg daily. 4. Entresto 24, 26 mg tablet, 1 tablet b.i.d. 5. Tamsulosin 0.4 mg daily. 6. Furosemide 20 mg daily. 7. Metoprolol tartrate 25 mg daily. The dose of this needs to be adjusted at outpatient cardiology visit. 8. Omeprazole 20 mg daily; 30 capsules have been prescribed. 9. Rivaroxaban 20 mg with supper. DISCHARGE INSTRUCTIONS: He was instructed about medication changes, including decreasing Lasix dose, changing metoprolol succinate to tartrate, and following up with Cardiology. He was also counseled about stopping alcohol use. VITAL SIGNS AT THE TIME OF DISCHARGE: Temperature 98.2 degrees, pulse 80, respiratory rate 14, blood pressure of 126/82, saturating 100% on room air. On orthostatic vitals, his supine pulse was 80 and standing was 109. His supine blood pressure systolic was 126 and standing was 110. LABS AT THE TIME OF DISCHARGE: WBC 6.4, hemoglobin 13.7, platelet of 403,000. Potassium 4, magnesium 1.9, BUN of 12, creatinine of 1. SIGNIFICANT MICROBIOLOGY DURING HOSPITAL ADMISSION: None. SIGNIFICANT IMAGING DURING HOSPITAL ADMISSION: Chest x-ray did not have any consolidation, pleural effusion, or pneumothorax. Head CT did not have any acute process. Electrocardiogram had normal sinus rhythm, left axis deviation, inferior infarct with possible anterolateral infarct which were old changes. Echocardiogram had ejection fraction of 55 to 60 percent, which has improved from previous ejection fraction of 30% a few months ago. HOSPITAL COURSE SUMMARY: Mr. Jessica is a 68-year-old man with history of nonischemic cardiomyopathy, likely alcohol-related, and chronic systolic congestive heart failure with previously documented ejection fraction of 30%, who was mowing garden for about 1 hour and then went to [employer] to withdraw money, and he was on his feet for about 1 hour. As soon as he inserted his [employer] card, he had passed out and had experienced syncope. He did not have any bowel or bladder incontinence. His bystanders helped him get up and he had refused to come to the emergency room, so he had gone home. After that, he did not experience any syncope episode. Noticeably, patient did not eat anything until 11 a.m. on that day. The next day, he started experiencing sharp chest pain in the epigastric region with some acid-like feeling which was not going away, and the chest pain persisted for about 24 to 36 hours, so he decided to come to the emergency room. In the emergency room on arrival, he did have tachycardia with heart rate of 126, and it was noticed to be sinus tachycardia. He was admitted for further management. Inside the hospital, he was started on all of his home medications, including amiodarone which was not listed on his previous medication, but he was supposed to take as per Cardiology. He was admitted to telemetry unit and echocardiogram was performed. Echocardiogram had suggested significant improvement in his ejection fraction from echocardiogram performed a few months ago, and his ejection fraction had improved from 30 to 40 percent to 55 to 60 percent, considering that cardiac arrhythmia was unlikely to be the cause of his syncope. It was thought that he had orthostatic hypotension, which could have been contributed by use of Lasix and tamsulosin, and so Lasix dose was decreased. Also, his metoprolol succinate was changed to metoprolol tartrate 25 mg once daily, following which patient did not have any orthostatic symptoms, though he did have tachycardia on standing up while checking orthostatic vitals. It was not symptomatic. It was decided to discharge the patient and have outpatient followup with Cardiology, with whom he was scheduled to be seen within 2 weeks. At the time of discharge, he was also advised to contact the Cardiology office and get a 48 hour Holter monitor. TIME SPENT: More than 30 minutes was spent in discharging this patient. cc: MD MARYLIN Choi
[2019-02-12] MEDS ORDERED: PRILOSEC PO SCH (07:00)
== END 2019-02-11 11:04 | disposition home or self-care (01) | DRG 312 ==
LOC: ED 11:27 → SUATTDRO 20:15 → EDIPHOLD 20:15 → 3S 21:10
PROVIDERS: ATTEND Internal Medicine
CPT/HCPCS: 70450; 71020; 71046; 80048; 80053; 80162; 82550; 82948; 83605; 83735; 83880; 84443; 84484; 85025; 85610; 85730; 93005; 93010; 93306; A9270; C8929; J2250; J2270; J7030; Q9957; XXXXX